=== PATIENT | male | born 1975 | race Caucasian/White ===

== ENCOUNTER 2024-01-20 08:40 | Emergency (ER) | payer OTHER ==
[~2024-01-20] VITALS: Ht 165.1 cm; Wt 86.9 kg
[2024-01-20 09:06] VITALS: BP 138/81; PULSE 69; RESP 18; TEMP 97.8; O2SAT 99
[2024-01-20] MEDS: KETOROLAC 60 MG/2 ML VIAL IM ONE (09:52)
[2024-01-20 10:08] LABS: BASOPHILS # (AUTO) 0.1 K/uL (0.00-0.22); EOSINOPHILS # (AUTO) 0.1 K/uL (0-0.4); EOSINOPHILS % (AUTO) 1.6 % (0.0-4.0); HEMATOCRIT 42.3 % (36-52); HEMOGLOBIN 14.5 g/dL (12.0-18.0); MEAN CORPUSCULAR HEMOGLOBIN 30 pg (27-31); MEAN CORPUSCULAR HGB CONC 34 g/dL (33-37); MEAN CORPUSCULAR VOLUME 88.5 fL (80-94); MONOCYTES # (AUTO) 0.5 K/uL (0.8-1.0); MONOCYTES % (AUTO) 6.9 % (1.7-9.3); NEUTROPHILS # (AUTO) 5.1 K/uL (1.8-7.7); NEUTROPHILS % (AUTO) 64.5 % (42.2-75.2); PLATELET COUNT (AUTO) 341 K/uL (140-450); RED BLOOD CELL COUNT(AUTO) 4.77 MIL/uL (4.20-6.10); WHITE BLOOD COUNT (AUTO) 7.8 K/uL (4.8-10.8)
[2024-01-20 10:12] LABS: APPEARANCE,URINE CLEAR (CLEAR); BILIRUBIN,URINE NEGATIVE (NEGATIVE); BLOOD, URINE NEGATIVE (NEGATIVE); COLOR,URINE YELLOW (YELLOW); LEUKOCYTE ESTERASE ,URINE NEGATIVE (NEGATIVE); NITRITE, URINE NEGATIVE (NEGATIVE); PH,URINE 6.5 (5.0-9.0); PROTEIN,URINE NEGATIVE (NEGATIVE); UGLUCOSE NEGATIVE (NEGATIVE); UROBILINOGEN,URINE 0.2 EU/dL (0.2 - 1)
[2024-01-20 11:01] VITALS: BP 135/81; PULSE 74; RESP 18; TEMP 97.8; O2SAT 99
[2024-01-20 11:12] LABS: ANION GAP 12.4 (8-16); CARBON DIOXIDE 24.7 mmol/L (21-32); CREATININE 0.9 mg/dL (0.6-1.3); POTASSIUM 4.1 mmol/L (3.5-5.1)
== END 2024-01-20 11:42 | disposition home or self-care (01) ==
LOC: MED 08:40
DX: R35.0 Frequency of micturition (principal); R53.83 Other fatigue; R03.0 Elevated blood-pressure reading, without diagnosis of hypertension
CPT/HCPCS: 36415; 80048; 81003; 82948; 85025; 99283